=== PATIENT | female | born 1950 | race Caucasian/White ===

== ENCOUNTER 2018-12-13 10:58 | Emergency (ER) | payer MEDICARE, BC ==
--- NOTE | 2018-12-13 11:50 | UC ---
Throat Pain/Nasal Claus HPI - HPI Summary HPI Summary: Reports sore throat x5 days and is concerned it is strep. Was at a children's bday part prior but denies sick contacts. has tried many otc meds w/ little relief. nothing really makes it worse. she is also concerned b/c she is on a med that lowers her immune system. DOES REPORT HAVING ALLERGIES WELL BUT DENIES POST NASAL DRIP. - History of Current Complaint Chief Complaint: UCRespiratory Stated Complaint: SORE THROAT Time Seen by Provider: 12/13/18 11:20 Hx Obtained From: Patient Pain Intensity: 4 Pain Scale Used: 0-10 Numeric Cough: None Associated Signs & Symptoms: Positive: Dysphagia. Negative: Drooling, Fever - Allergies/Home Medications Allergies/Adverse Reactions: Allergies Allergy/AdvReac Type Severity Reaction Status Date / Time No Known Allergies Allergy Verified 12/13/18 11:09 Home Medications: Home Medications Cholecalciferol TAB* [Vitamin D TAB*] 12/13/18 [History] Ibuprofen TAB* [Advil TAB*] 400 mg PO ONCE PRN 12/13/18 [History Confirmed 12/13] Levothyroxine TAB* [Synthroid TAB*] 30 mcg PO DAILY 12/13/18 [History Confirmed 12/13/18] LoraTADine TAB(NF) [Claritin 10 MG TAB(NF)] 10 mg PO DAILY 12/13/18 [History Confirmed 12/13/18] Multivitamin [Multivitamins] 1 each PO DAILY 12/13/18 [History Confirmed ] Secukinumab [Cosentyx Syringe] 300 mg SQ MONTHLY 12/13/18 [History Confirmed ] PMH/Surg Hx/FS Hx/Imm Hx - Additional Past Medical History Additional PMH: RA Previously Healthy: Yes Endocrine History: Thyroid Disease - Surgical History Surgical History: Yes Surgery Procedure, Year, and Place: HYSTERECTOMY, SALPINGECTOMY, OOPHORECTOMY, JAW SURGERY - Social History Alcohol Use: Rare Substance Use Type: None Smoking Status (MU): Never Smoked Tobacco Review of Systems All Other Systems Reviewed And Are Negative: Yes Constitutional: Negative: Fever Skin: Negative: Rash ENT: Positive: Sore Throat, Sinus Congestion. Negative: Ear Ache Respiratory: Positive: Negative Cardiovascular: Positive: Negative Gastrointestinal: Negative: Vomiting, Nausea Neurological: Negative: Headache Physical Exam Triage Information Reviewed: Yes Appearance: Well-Appearing Vital Signs: Initial Vital Signs Temp 98.1 F 12/13/18 11:05 Pulse 77 12/13/18 11:05 Resp 16 12/13/18 11:05 BP 152/92 12/13/18 11:05 Pulse Ox 97 12/13/18 11:05 Vital Signs Reviewed: Yes Eyes: Positive: Conjunctiva Clear ENT: Positive: Pharyngeal erythema, TMs normal, Uvula midline. Negative: Tonsillar swelling, Tonsillar exudate Neck: Positive: Supple, Nontender, No Lymphadenopathy Respiratory Exam: Normal Cardiovascular Exam: Normal Neurological: Positive: Alert Skin: Negative: Rashes Throat Pain/Nasal Course/Dx - Course Course Of Treatment: Pharyngitis for 5 days and today is NEG for strep. She does report allergies as well. This is likely viral but cannot r/o allergic pharyngitis. Plan is to have her cont. otc remedies for symptomatic relief, send for culture and if no growth she should f/u w/ provider as she is on meds to lower immune system and could be other sources for pharyngitis. blood pressure a little elevated for which she will f/u w/ pcp. - Differential Dx/Diagnosis Differential Diagnosis/HQI/PQRI: Pharyngitis, Tonsillitis, URI Provider Diagnosis: Pharyngitis Discharge - Sign-Out/Discharge Documenting (check all that apply): Patient Departure All imaging exams completed and their final reports reviewed: No Studies - Discharge Plan Condition: Good Disposition: HOME Patient Education Materials: Pharyngitis (ED) Referrals: Miky Disla MD [Primary Care Provider] - Additional Instructions: As we discussed since you are on medication that lowers your immune system: if you do not hear from us that the culture grew any bacteria then please follow up with your provider about other possibilities and causes of a sore throat. This is likely a viral infection that is taking a little longer than usual to clear. It could also be related to allergies as well. - Billing Disposition and Condition Condition: GOOD Disposition: Home
--- NOTE | 2018-12-15 14:04 | UC ---
- Progress Note Progress Note: normal gutierrez 2+ throat no change nataliia 12/15/18 Course/Dx - Diagnoses Provider Diagnoses: Pharyngitis Discharge - Sign-Out/Discharge Documenting (check all that apply): Post-Discharge Follow Up All imaging exams completed and their final reports reviewed: No Studies - Discharge Plan Condition: Good Disposition: HOME Patient Education Materials: Pharyngitis (ED) Referrals: Miky Disla MD [Primary Care Provider] - Additional Instructions: As we discussed since you are on medication that lowers your immune system: if you do not hear from us that the culture grew any bacteria then please follow up with your provider about other possibilities and causes of a sore throat. This is likely a viral infection that is taking a little longer than usual to clear. It could also be related to allergies as well. - Billing Disposition and Condition Condition: GOOD Disposition: Home
== END 2018-12-13 12:10 | disposition home or self-care (01) ==
LOC: UCEAST 10:58
DX: J02.9 Acute pharyngitis, unspecified (principal); E07.9 Disorder of thyroid, unspecified
CPT/HCPCS: 87070; 87651; 99201; G0463